=== PATIENT | male | born 1995 | race Caucasian/White ===

== ENCOUNTER 2018-09-26 02:27 | Emergency (ER) | payer SELFPAY ==
[~2018-09-26] VITALS: Ht 190.5 cm; Wt 109.8 kg
--- NOTE | 2018-09-26 02:42 | ED Lower Extremity ---
General Stated Complaint: GOUT ATTACK, LEFT ANKLE Source: patient Exam Limitations: no limitations History of Present Illness Date Seen by Provider: Sep 26, 2018 Time Seen by Provider: 02:27 Initial Comments Patient presents to ER by James flores with his significant other and chief complaint of gout pain in his left ankle and right toe for the past week. He went to his primary care doctor's office he was out and saw another doctor who gave him Toradol which he said only helped for about 20 minutes. He was taking the indomethacin and ran out about 2 days ago and is progressively gotten worse until tonight he cannot stand anymore. He does not take cultures in. He tried allopurinol before but he said it did not help his symptoms. He follows the diet does not drink alcohol and still has problems with gout. He has had high uric acid levels but never had a joint aspirated. Allergies and Home Medications Allergies Coded Allergies: No Known Drug Allergies (Unverified , 09/26/18) Patient Home Medication List Home Medication List Reviewed: Yes Review of Systems Constitutional: No chills, No fever Respiratory: No cough, No short of breath Cardiovascular: No chest pain, No edema Gastrointestinal: No abdominal pain, No nausea Genitourinary: No discharge, No dysuria Past Puzezet-Qzouqc-Nqcxzq Hx Patient Social History Alcohol Use: Denies Use Recreational Drug Use: No Physical Exam Vital Signs Capillary Refill : Height, Weight, BMI Height: '" Weight: lbs. oz. kg; BMI Method: General Appearance: WD/WN, mild distress HEENT: pharynx normal Respiratory: no respiratory distress, no accessory muscle use Ankles: right ankle non-tender, right ankle normal inspection, right ankle normal range of motion; bilateral ankle no evidence of injury; left ankle joint effusion (mild), left ankle pain Feet: left foot pain (great toe), left foot swelling Neurologic/Tendon: normal sensation, no evidence tendon injury Neurologic/Psychiatric: alert, normal mood/affect Skin: normal color, warm/dry Progress/Results/Core Measures Progress Progress Note : Time: 02:41 Progress Note Shot of Depo-Medrol, Toradol and fentanyl. Sending home on steroids colchicine and indomethacin. Departure Impression Primary Impression: Gout attack Qualified Codes: M10.9 - Gout, unspecified Disposition: 01 HOME, SELF-CARE Condition: Stable Departure-Patient Inst. Decision time for Depature: 02:42 Referrals: CRISTA PETERS MD Primary Care Physician Patient Instructions: Gout (DC), Lifestyle Changes to Manage Gout Add. Discharge Instructions: You can use the colchicine 2 tablets when you pick it up this morning and then 1 tablet every 8 hours until your symptoms resolved. Indomethacin 25 mg every 8 hours as needed until your pain improves. Tylenol 650 mg every 8 hours as necessary for pain. Hydrocodone one tablet every 6 hours as needed for breakthrough pain. Prednisone one tablet twice a day for the next 5 days. Topical creams with capsaicin oil are recommended. Scripts Hydrocodone Bit/Acetaminophen (Hydrocodone/Acetaminophen 5/325mg Tablet) 1 Tab Tab 1 EACH PO Q4-6HR PRN for PAIN-MODERATE MDD 10 for 3 Days, #12 TAB 0 Refills Prov: CHIRAG GOODRICH 09/26/18 Prednisone (Prednisone) 20 Mg Tab 20 MG PO BID for 5 Days, #10 TAB 0 Refills Prov: CHIRAG GOODRICH 09/26/18 Indomethacin (Indomethacin) 25 Mg Capsule 25 MG PO Q8H PRN for GOUT PAIN, #10 CAP 0 Refills Prov: CHIRAG GOODRICH 09/26/18 Colchicine (Colchicine) 0.6 Mg Tablet 0.6 MG PO Q8H PRN for GOUT PAIN, #7 TAB 0 Refills Prov: CHIRAG GOODRICH 09/26/18 Work/School Note: Work Release Form Date Seen in the Emergency Department: Sep 26, 2018 Return to Work: Sep 27, 2018 Restrictions: No Restrictions CHIRAG GOODRICH Sep 26, 2018 02:42
[2018-09-26] MEDS ORDERED: KETOROLAC 60 MG/2 ML VIAL IM ONE (02:45)
[2018-09-26] MEDS ORDERED: RX-HYDROCODONE/APAP 5/325 MG #4 TAB PK PO PRN (02:45)
[2018-09-26] MEDS ORDERED: methylPREDNISolone 40 MG/ML (DEPO MEDROL) VIAL IM ONE (02:45)
[2018-09-26] MEDS ORDERED: fentaNYL INJECTION 100 MCG/2 ML AMP IM ONE (02:45)
[2018-09-26] MEDS ORDERED: COLCHICINE 0.6 MG (COLCRYS) TABLET PO ONE (02:45)
[2018-09-26] MEDS ORDERED: ACHD5005 PO (02:51)
[2018-09-26] MEDS ORDERED: PRD20T PO (02:51)
[2018-09-26] MEDS ORDERED: COLC0.6T56 PO (02:51)
[2018-09-26] MEDS ORDERED: INDO25CA15 PO (02:51)
[2018-09-26 03:18] VITALS: BP 161/66
== END 2018-09-26 03:15 | disposition home or self-care (01) ==
LOC: ER FS 02:30
DX: M10.9 Gout, unspecified (principal); Z91.14 Patient's other noncompliance with medication regimen
CPT/HCPCS: 99284

== ENCOUNTER 2019-09-30 13:50 | Emergency (ER) | payer SELFPAY ==
[~2019-09-30] VITALS: Ht 190.5 cm; Wt 129.9 kg
[~2019-09-30 13:50] MED LIST: ACHD5005 PO; COLC0.6T56 PO; INDO25CA99 PO; PRD20T PO
--- OUTSIDE RECORDS SUMMARY | 2019-09-30 13:55 | XMS REPORT | Continuity of Care Document ---
Author Organization Unknown Address Unknown Phone Unavailable Allergies Active Description Code Type Severity Reaction Onset Reported/Identified Relationship to Patient Clinical Status Yes No Known Drug Allergies [id number] Drug Allergy Unknown N/A 09/26/2018 Medications There is no data. Problems Date Dx Coded Attending Type Code Diagnosis Diagnosed By 09/26/2018 KP IBRAHIM, CHIRAG Garcia Ot M10. 9 GOUT, UNSPECIFIED 09/26/2018 KP IBRAHIM, CHIRAG Garcia Ot Z91. 14 PATIENT'S OTHER NONCOMPLIANCE WITH MEDIC 10/03/2018 CHIRAG GOODRICH MD Ot M10. 9 GOUT, UNSPECIFIED 10/03/2018 KP IBRAHIM, CHIRAG Garcia Ot Z91. 14 PATIENT'S OTHER NONCOMPLIANCE WITH MEDIC Procedures There is no data. Results There is no data. Encounters ACCT No. Visit Date/Time Discharge Status Pt. Type Provider Facility Loc./Unit Complaint [id number] 09/26/2018 02:30:00 019 03:15:00 DIS Emergency KP IBRAHIM, CHIRAG Garcia [facility] ER FS GOUT ATTACK, LEFT ANKLE
[2019-09-30] MEDS ORDERED: morphine INJ 10 MG/ML 1ML (SYR OR VIAL) IM STA (14:23)
[2019-09-30] MEDS ORDERED: ONDANSETRON 4 MG (ZOFRAN) ORAL DISSOLVE TAB PO STA (14:23)
[2019-09-30] MEDS ORDERED: SILVER SULFADIAZINE 50 GM CREAM ONE (14:26)
[2019-09-30] MEDS ORDERED: HYDR-83 PO (14:30)
[2019-09-30] MEDS ORDERED: SILVASORB GEL 1.5 OZ TP SCH (14:30)
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
[2019-09-30 14:45] VITALS: BP 127/67
[2019-10-01] MEDS ORDERED: SILVER SULFADIAZINE 50 GM CREAM TOP SCH (09:00)
== END 2019-09-30 14:45 | disposition home or self-care (01) ==
LOC: EDUNIT# 13:50 → ER FS 13:51
DX: T24.201A Burn of second degree of unspecified site of right lower limb, except ankle and foot, initial encounter (principal); M10.9 Gout, unspecified; Z79.52 Long term (current) use of systemic steroids; X04.XXXA Exposure to ignition of highly flammable material, initial encounter

== ENCOUNTER 2022-09-28 20:18 | Emergency (ER) | payer SELFPAY ==
[~2022-09-28 20:18] MED LIST changes: -COLC0.6T56 PO; +COLC0.6T59 PO
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
[2022-09-28] MEDS ORDERED: ACETAMINOPHEN 325 MG TABLET PO STA (20:37)
[2022-09-28 20:41] VITALS: BP 140/91
== END 2022-09-28 20:43 | disposition home or self-care (01) ==
LOC: EDUNIT# 20:18 → ER FS 20:20
DX: S09.90XA Unspecified injury of head, initial encounter (principal); S00.03XA Contusion of scalp, initial encounter; E86.0 Dehydration; Z87.891 Personal history of nicotine dependence; Z28.310 Unvaccinated for COVID-19; W20.8XXA Other cause of strike by thrown, projected or falling object, initial encounter
CPT/HCPCS: 99283

== ENCOUNTER 2022-10-24 06:44 | Emergency (ER) | payer SELFPAY ==
[~2022-10-24] VITALS: Ht 190 cm; Wt 121.0 kg
[2022-10-24 07:04] VITALS: BP 142/83
--- NOTE | 2022-10-24 07:26 | ED Back Pain ---
General Chief Complaint: Back Problems Stated Complaint: LOWER BACK PAIN Nursing Triage Note: Patient has ambulated to ER with cc of lower back pain. He reports the pain started yesterday, he denies any known injury or trauma. He did use ice and heat yesterday and it helps but the pain returns. He did take tylenol this morning for his pain and came to ER for evaluation. History of Present Illness Date Seen by Provider: Oct 24, 2022 Time Seen by Provider: 07:15 Initial Comments 27-year-old male is here with complaints of low back pain since yesterday. Patient was lifting heavy boxes the day before at work, and patient thinks that is what triggered his back pain. Patient went to urgent care yesterday and was given a prescription for a muscle relaxant. Patient woke up today and still has pain in his lower back. Denies spine pain, fever and chills, falls, injury, sensory issues. Patient does not have any radiation of pain down his legs. Allergies and Home Medications Allergies Coded Allergies: No Known Drug Allergies (Unverified , 09/26/18) Patient Home Medication List Home Medication List Reviewed: Yes Colchicine (Colchicine) 0.6 Mg Tablet, 0.6 MG PO Q8H PRN for GOUT PAIN Prescribed by: CHIRAG GOODRICH on 09/26/18 025 Hydrocodone Bit/Acetaminophen (Lortab 5 Mg Tablet) 1 Tab Tab, 1 EACH PO Q4-6HR PRN for PAIN-MODERATE Prescribed by: CHIRAG GOODRICH on 09/26/18 025 Hydrocodone/Acetaminophen (Hydrocodone-Acetamin 5-325 mg) 1 Each Tablet, 1 EACH PO Q6H Prescribed by: JULIAN BARNHART on 09/30/19 1430 Indomethacin (Indomethacin) 25 Mg Capsule, 25 MG PO Q8H PRN for GOUT PAIN Prescribed by: CHIRAG GOODRICH on 09/26/18 025 Prednisone (Prednisone) 20 Mg Tab, 20 MG PO BID Prescribed by: CHIRAG GOODRICH on 09/26/18 025 Review of Systems Constitutional: no symptoms reported EENTM: no symptoms reported Respiratory: no symptoms reported Cardiovascular: no symptoms reported Gastrointestinal: no symptoms reported Genitourinary: no symptoms reported Musculoskeletal: back pain Past Hafyoqb-Ikpfpm-Jxgjbp Hx Patient Social History Tobacco Use?: Yes Use of E-Cig and/or Vaping dev: Yes Use of E-Cig and/or Vaping Rober: Current Everyday User Substance use?: No Alcohol Use?: No Seasonal Allergies Seasonal Allergies: No Past Medical History Surgery/Hospitalization HX: Type 2 diabetes Surgeries: Yes Orthopedic Respiratory: Yes COPD Cardiac: No Neurological: No Genitourinary: No Gastrointestinal: No Musculoskeletal: Yes Gout Endocrine: No HEENT: No Cancer: No Psychosocial: No Integumentary: No Blood Disorders: No Physical Exam Vital Signs Vital Signs - First Documented 10/24/22 07:04 Temp 36.6 Resp 85 B/P (MAP) 142/83 (102) Pulse Ox 99 O2 Delivery Nasal Cannula Capillary Refill : Height, Weight, BMI Height: 6'3.00" Weight: 242lbs. oz. 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 LUMBAR PARASPINAL MUSCLE SPASM: - Advised ALEVE ( NAPROXEN) capsules 440mg twice a day, and Tylenol every 4 hours. - Advised over the counter Lidoderm patches - Advised to continue muscle relaxant as prescribed by urgent care. Do not drive after taking it. - Advised heat application, gentle massage, and gentle stretching. - Follow up with PCP in one week. -The patient was seen in the ED, and treated appropriately to presentation at a specific point in time. Patient is informed that there is a possibility that disease and illness can evolve and change in acuity rapidly or slowly after patient is discharged from the ER. Precautionary advice given to the patient for immediate return to ER if symptoms worsen or do not resolve, and to seek emergency care sooner rather than later. Pt also advised on the importance of PCP follow up and compliance with management and follow up plan with PCP and/or specialist, as this is part of the management plan. Pt verbally expressed understanding. Departure Impression Primary Impression: Lumbar paraspinal muscle spasm Disposition: 01 HOME, SELF-CARE Condition: Stable Departure-Patient Inst. Referrals: CRISTA PETERS MD (PCP/Family) Primary Care Physician Patient Instructions: Muscle Spasms (DC), Using Heat for Pain Add. Discharge Instructions: - Advised ALEVE ( NAPROXEN) capsules 440mg twice a day, and Tylenol every 4 hours. - Advised over the counter Lidoderm patches - Advised to continue muscle relaxant as prescribed by urgent care. Do not drive after taking it. - Advised heat application, gentle massage, and gentle stretching. - Follow up with PCP in one week. All discharge instructions reviewed with patient and/or family. Voiced understanding. Work/School Note: Work Release Form Date Seen in the Emergency Department: Oct 24, 2022 Return to Work: Oct 26, 2022 Restrictions: Need Release from Doctor, Follow Up With [facility] Other Restrictions Listed Below: No heavy lifting until cleared by [facility] or PCP. PHILIP PATEL MD Oct 24, 2022 07:25
[2022-10-24] MEDS ORDERED: KETOROLAC INJ 30 MG/ML VIAL IM ONE (07:30)
== END 2022-10-24 07:50 | disposition home or self-care (01) ==
LOC: EDUNIT# 06:44 → ER FS 06:46
DX: M62.830 Muscle spasm of back (principal); F17.290 Nicotine dependence, other tobacco product, uncomplicated; X50.0XXA Overexertion from strenuous movement or load, initial encounter; Y93.F2 Activity, caregiving, lifting; Y99.0 Civilian activity done for income or pay
CPT/HCPCS: 99284